=== PATIENT | male | born 1985 | race Two or more races ===

== ENCOUNTER 2017-02-11 22:42 | Emergency (ER) | payer SELFPAY ==
[2017-02-11 22:59] VITALS: BP 123/99
[2017-02-11] MEDS ORDERED: Sodium Chloride 0.9% 10 ML Syringe FLUSH PRN (23:12)
[2017-02-11] MEDS ORDERED: methylPREDNISolone Sodium Succinate 125 MG/2 ML SDV IVPUSH ONE (23:12)
--- NOTE | 2017-02-11 23:12 | EDM.PDOC ---
ED HPI Trauma - General Chief Complaint: Lower Extremity Injury/Pain Stated Complaint: GOUT RIGHT FOOT Time Seen by Provider: 02/11/17 23:06 Source: Reports: Patient History Limitations: Reports: No limitations - History of Present Illness INITIAL COMMENTS - FREE TEXT/NARRATIVE: 31-year-old male presents to the ED with severe pain and swelling left knee that radiates up towards his hip. States he's been having problems with a gout flare involving his left knee for the last 3 weeks. He has been taking allopurinol 100 mg daily for about 2 years and has had multiple gout attacks during that time frame. He's been taking Aleve and Motrin frequently the last 3 weeks as well. He does not help much at all. Tonight he can't stand the pain he can't walk and he can't work. He states that has involved his great toe his ankle in the past on the left side . He estimates she's had greater than 20 gout attacks. Denies any injury to the knee at all. Symptom Onset Date: 01/17/17 Occurred When: other (About 3 weeks ago.) Occurred Where: other Method of Injury: other (No known injuries) Severity: severe Pain/Injury Location: Reports: lower extremity, left (Left knee radiating up into his left hip.) Associated Symptoms: Reports: trouble walking. Denies: abdominal pain, chest pain, confusion, dizziness, headache, lightheadedness, muscle spasms, nausea/ vomiting, neck pain, ringing in ears, seizures, shortness of breath, slurred speech, vision changes, other Allergies/ADRs: Allergies No Known Allergies Allergy (Verified 02/11/17 22:59) Home Medications: Ambulatory Orders Allopurinol [Zyloprim] 100 mg PO DAILY 12/02/15 [Confirmed 02/11/17] Naproxen Sodium [Aleve] 1 tab PO ASDIRECTED PRN 12/02/15 [Confirmed 02/11/17] Ibuprofen [Advil] 1 - 2 tab PO ASDIRECTED PRN 02/11/17 [Confirmed 02/11/17] Acetaminophen/oxyCODONE [Percocet 325-5 MG] 2 tab PO Q4H #5 tablet 02/12/17 Allopurinol [Zyloprim] 300 mg PO DAILY #30 tablet 02/12/17 Diclofenac Sodium [Voltaren] 50 mg PO TIDMEALS #30 tab.ec 02/12/17 Prednisone [IJD: predniSONE] 20 mg PO ASDIRECTED #18 tab 02/12/17 oxyCODONE HCl/Acetaminophen [Percocet 10-325 mg Tablet] 1 each PO Q4H #20 tablet 02/12/17 Past Medical History Musculoskeletal History: Reports: Gout Social & Family History - Tobacco Use Smoking Status *Q: Never Smoker - Caffeine Use Caffeine Use: Reports: Soda - Alcohol Use Days Per Week of Alcohol Use: 2 Number of Drinks Per Day: 7 Total Drinks Per Week: 14 - Recreational Drug Use Recreational Drug Use: No - Living Situation & Occupation Living situation: Reports: Occupation: employed Review of Systems - Review of Systems Review Of Systems: See Below Constitutional: Denies: chills, diaphoresis, fever, weakness, other Eyes: Reports: no symptoms Ears: Reports: no symptoms Nose: Reports: no symptoms Mouth/Throat: Reports: no symptoms Respiratory: Reports: No Symptoms Cardiovascular: Reports: no symptoms GI/Abdominal: Reports: No symptoms Genitourinary: Reports: no symptoms Musculoskeletal: Reports: joint pain Skin: Reports: no symptoms (Left knee pain) Neurological: Reports: No Symptoms Psychiatric: Reports: no symptoms Trauma Exam - Physical Exam Exam: See Below Exam Limited By: No limitations General Appearance: Reports: alert, WD/WN, moderate distress Extremities: Reports: no evidence of injury, tenderness (Entire medial aspect of the knee.), other (Has an obvious effusion of the left knee with inability to see the patella. Marked increased warmth anterior aspect of the knee in the distribution of the prepatellar bursae and suprapatellar recess. Painful to move in any direction. It is painful along the medial joint line more so than the lateral joint line and posteriorly. There is no erythema of the joint.). Denies: normal range of motion, non-tender, pedal edema Neurologic: Reports: no motor/sensory deficits, alert, normal mood/affect, oriented x 3 Skin: Reports: Normal color, Warm/dry - Sasha Coma Score Best Eye Response (Sasha): (4) open spontaneously Best Verbal Response (Pharr): (5) oriented Best Motor Response (Sasha): (6) obeys commands Pharr Total: 15 Course - Vital Signs Last Recorded V/S: Last Vital Signs Temp 36.4 C 02/11/17 22:55 Pulse 84 02/11/17 22:55 Resp 16 02/11/17 22:55 BP 123/99 H 02/11/17 22:55 Pulse Ox 100 02/11/17 22:55 - Orders/Labs/Meds Orders: Active Orders 24 hr Category Date Time Status Peripheral IV Care [RC] . DIRECTED Care 02/11/17 23:12 Active Peripheral IV Insertion Adult [OM.PC] Stat Oth 02/11/17 23:12 Ordered Labs: Laboratory Tests 02/11/17 02/11/17 Range/Units 23:28 23:28 WBC 14.88 H (4.23-9.07) K/mm3 RBC 4.13 L (4.63-6.08) M/mm3 Hgb 12.8 L (13.7-17.5) gm/L Hct 37.9 L (40.1-51.0) % MCV 91.8 (79.0-92.2) fl MCH 31.0 (25.7-32.2) pg MCHC 33.8 (32.2-35.5) g/dl RDW Std Deviation 40.1 (35.1-43.9) fL Plt Count 464 H (163-337) K/mm3 MPV 9.7 (9.4-12.3) fl Neutrophils % (Manual) 62 H (40-60) % Band Neutrophils % 0 (0-10) % Lymphocytes % (Manual) 24 (20-40) % Atypical Lymphs % 0 % Monocytes % (Manual) 8 (2-10) % Eosinophils % (Manual) 3 (0.8-7.0) % Basophils % (Manual) 3 H (0.2-1.2) Platelet Estimate Increased Plt Morphology Comment Normal Polychromasia 1+ slight RBC Morph Comment Not Reportable Sodium 138 (136-145) mEq/L Potassium 3.9 (3.5-5.1) mEq/L Chloride 102 (98-107) mEq/L Carbon Dioxide 26 (21-32) mEq/L Anion Gap 13.9 (5-15) BUN 16 (7-18) mg/dL Creatinine 1.0 (0.7-1.3) mg/dL Est Cr Clr Drug Dosing 98.23 mL/min Estimated GFR (MDRD) > 60 (>60) mL/min BUN/Creatinine Ratio 16.0 (14-18) Glucose 108 H (74-106) mg/dL Uric Acid 6.4 (3.5-7.2) mg/dL Calcium 9.0 (8.5-10.1) mg/dL Total Bilirubin 0.3 (0.2-1.0) mg/dL AST 13 L (15-37) U/L ALT 23 (16-63) U/L Alkaline Phosphatase 74 (46-116) U/L C-Reactive Protein 4.5 H* (<1.0) mg/dL Total Protein 7.6 (6.4-8.2) g/dl Albumin 3.5 (3.4-5.0) g/dl Globulin 4.1 gm/dL Albumin/Globulin Ratio 0.9 L (1-2) Meds: Medications Discontinued Medications Generic Name Dose Route Start Last Admin Trade Name Freq PRN Reason Stop Dose Admin Colchicine 0.6 mg 02/11/17 23:13 02/11/17 23:29 Colcrys PO 02/11/17 23:14 0.6 mg ONETIME ONE Administration Colchicine 0.6 mg 02/12/17 00:08 02/12/17 00:18 Colcrys PO 02/12/17 00:09 0.6 mg ONETIME ONE Administration Hydromorphone HCl 1 mg 02/11/17 23:13 02/11/17 23:29 Dilaudid IVPUSH 02/11/17 23:14 1 mg ONETIME ONE Administration Ketorolac Tromethamine 30 mg 02/11/17 23:15 02/11/17 23:30 Toradol IVPUSH 30 mg ONETIME SINDI Administration Methylprednisolone Sodium Succinate 125 mg 02/11/17 23:12 02/11/17 23:29 Solu-Medrol IVPUSH 02/11/17 23:13 125 mg ONETIME ONE Administration Ondansetron HCl 4 mg 02/11/17 23:25 02/11/17 23:29 Zofran IVPUSH 02/11/17 23:26 4 mg ONETIME ONE Administration Sodium Chloride 10 ml 02/11/17 23:12 02/11/17 23:30 Saline Flush FLUSH 10 ml ASDIRECTED PRN Administration Keep Vein Open - Radiology Interpretation Free Text/Narrative:: 30-year-old male presents the ED with increased swelling and increased pain in his left knee that radiates medially up to his groin and hip area. He's been struggling with an inflammation of his left knee primarily doubt for the last 3 weeks. He's been living on Motrin and Aleve but over the last few days the pain is increased in severity and he can't walk. He has had gout for greater than 15 years. Been on allopurinol 100 mg a day for the last year has had multiple go to text while taking allopurinol. His toes she's not been increased. On examination he has a marked effusion of the left knee with increased warmth to palpation. No known trauma. Suspect acute crystal arthropathy either out or pseudogout. Blood work will be done to include a uric acid level and a CRP. I'm going to give him Solu-Medrol 125 mg IV with Toradol 30 mg IV Dilaudid 1 mg IV and colchicine 0.6 mg by mouth. Also given Zofran 4mg mg IV to prevent nausea. - Re-Assessments/Exams Free Text/Narrative Re-Assessment/Exam: 02/12/17 00:00: White count came back elevated at 14.88. Normal differential. Hemoglobin 12.8 hematocrit of 33.9 platelets normal at 454,000 CRP is elevated at 4.5 uric acid was mildly elevated at 6.4 the rest of the chemistry was normal. Patient be discharged home to take another colchicine Mevacor after one. He was given second dose at 11:45. The ED. He'll be started on prednisone 20 mg twice a day for 6 days then one tablet morning only for another 6 days to take away inflammation. Full-term 50 mg 3 times a day for 10 days to reduce pain and inflammation. Percocet 10 325 mg tablet one tablet every 4 hours as needed for pain relief. Given 5 x 3 25 mg Percocet tablets from the ER overnight. After he is completely back to normal he is to increase his allopurinol to 300 mg daily. He can take 3 of is 100 mg strength tablets initially and then I did write a prescription for 300 mg tablets for the next 2 months. Uric acid should be checked in 2 months time. He should expect marked improvement in pain and immobility in the next 48 to 72 hours. If not better he will return to medical care. I did offer him crutches but he states he has not home. Departure - Departure Time of Disposition: 00:09 Disposition: Home, Self-Care 01 Condition: fair Clinical Impression: Gout attack Qualifiers: Gout site: knee Gout etiology: idiopathic Laterality: left Qualified Code(s): M10.062 - Idiopathic gout, left knee Prescriptions: Acetaminophen/oxyCODONE [Percocet 325-5 MG] 2 tab PO Q4H #5 tablet Allopurinol [Zyloprim] 300 mg PO DAILY #30 tablet Diclofenac Sodium [Voltaren] 50 mg PO TIDMEALS #30 tab.ec Prednisone [IJD: predniSONE] 20 mg PO ASDIRECTED #18 tab oxyCODONE HCl/Acetaminophen [Percocet 10-325 mg Tablet] 1 each PO Q4H #20 tablet Instructions: Gout, [id number], Gout Referrals: PCP,None [Primary Care Provider] - Forms: ED Department Discharge Additional Instructions: Evaluation in the emergency room tonight in regards to severe inflammation and pain in the left knee. History of recurrent gout usually involving the foot and ankle on the same side. Intermittent pain left knee for the last 3 weeks. No associated fever or chills. Increased pain in the last day or 2 to the point that almost impossible to walk. Exam reveals inflammation particular in the anterior aspect of the knee in the prepatellar bursa area and along the inside of medial aspect of the knee. Treatment was started in the emergency room with Solu-Medrol 125 mg IV were given Dilaudid 1 mg IV for pain relief and Toradol 30 mg IV to reduce inflammation. Treatment at home will be Percocet tablets [facility] every 4 hours as needed overnight. Tomorrow for a prescription for Percocet 10/ 325 mg tablet usually one tablet every 4-6 hours for the next day or 2 until the steroids kick in and the pain is reduced. Usual care and 50 mg 3 times daily for the next 10 days to reduce pain and inflammation and gout attack. You'll need a third dose of colchicine about quarter after one this morning. It was sent home with you. SPECT marked improvement in the next 48 hours in regards to pain and swelling. Blood sugar completely back to normal i.e. likely about 10 months days increase her allopurinol to 300 mg once daily. You will need your uric acid level checked in your blood after being on allopurinol 300 mg daily for about 2 months. The idea behind this is to reduce the uric acid from being formed at all and thus preventing gout in the future. He will likely still expends a few gout attacks over the next 6 months but after this have a very low chance of getting severe gout ever again. Occasionally allopurinol dose will have to be increased to between 400 600 mg daily to uric acid level today was 6.4 and it I suspect 300 mg once a day we'll do the trick. Offered her personal care provider for uric acid check up in 2 months time. - My Orders Last 24 Hours: My Active Orders 02/11/17 23:12 Peripheral IV Care [RC] . DIRECTED Peripheral IV Insertion Adult [OM.PC] Stat - Assessment/Plan Last 24 Hours: My Active Orders 02/11/17 23:12 Peripheral IV Care [RC] . DIRECTED Peripheral IV Insertion Adult [OM.PC] Stat
[2017-02-11] MEDS ORDERED: Colchicine 0.6 MG Tab PO ONE (23:13)
[2017-02-11] MEDS ORDERED: HYDROmorphone 1 MG/ML Syringe IVPUSH ONE (23:13)
[2017-02-11] MEDS ORDERED: Ketorolac 30 MG/ML SDV IVPUSH SCH (23:15)
[2017-02-11] MEDS ORDERED: Ondansetron 4 MG/2 ML SDV IVPUSH ONE (23:25)
[2017-02-11] MEDS ORDERED: Acetaminophen/oxyCODONE 325-5 MG Tab ONE ×2 (23:59)
[2017-02-12] MEDS: Colchicine 0.6 MG Tab PO ONE ×2 (00:17→00:18)
== END 2017-02-12 00:25 | disposition home or self-care (01) ==
LOC: JD.ED 22:42
DX: M10.062 Idiopathic gout, left knee (principal); Z79.899 Other long term (current) drug therapy
CPT/HCPCS: 36415; 80053; 84550; 85025; 86140; 96374; 96375; 99284; A9270; J1170; J1885; J2405; J2930; J7050